=== PATIENT | female | born 1950 | race Caucasian/White ===

== ENCOUNTER → 2023-07-16 09:45 | Outpatient (REF) | payer MEDICARE, OTHER, SELFPAY | LOC: PAVMRI 09:45 | PROVIDERS: ATTENDING PHYSICIAN Specialist; FAMILY PHYSICIAN Family Medicine | DX: R26.89 Other abnormalities of gait and mobility (principal) | CPT/HCPCS: 70553; A9575 ==

== ENCOUNTER → 2023-09-16 15:21 | Outpatient (REF) | payer MEDICARE, OTHER, SELFPAY ==
[2023-09-16 17:03] LABS: % Basophils 0.5 % (0-2); % Eosinophils 1.4 % (0-6); % Immature Granulocytes 0.2 % (0-0.5); % Lymphocytes 40.9 % (20.5-51.1); % Monocytes 10.8 % (1.7-9.3); % Neutrophils 46.2 % (42.2-75.2); Absolute Eosinophils 0.1 10^3/uL (0-0.7); Absolute Lymphocytes 1.7 10^3/uL (1.2-3.4); Absolute Monocytes 0.5 10^3/uL (0.1-0.6); Hematocrit 41.2 % (37.0-47.0); Hemoglobin 13.6 g/dL (12.0-16.0); Mean Corpuscular Volume 90.7 fL (81.0-99.0); Mean Platelet Volume 10.2 fL (7.4-10.4); Nucleated Red Blood Cells % 0 %; Platelet Count 205 10^3/uL (130-400); Red Blood Cell Count 4.54 10^6/uL (4.20-5.40); Red Cell Dist. Width 14.3 % (11.5-14.5); White Blood Cell Count 4.3 10^3/uL (4.8-10.8)
== END ==
LOC: REG 15:21
PROVIDERS: ATTENDING PHYSICIAN Family Medicine
DX: D84.9 Immunodeficiency, unspecified (principal)
CPT/HCPCS: 36415; 85025

== ENCOUNTER → 2023-09-29 08:54 | Outpatient (REF) | payer MEDICARE, OTHER, SELFPAY | LOC: HWWDC 08:54 | PROVIDERS: ATTENDING PHYSICIAN Obstetrics & Gynecology; FAMILY PHYSICIAN Family Medicine | DX: Z12.31 Encounter for screening mammogram for malignant neoplasm of breast (principal) | CPT/HCPCS: 77063; 77067 ==

== ENCOUNTER 2024-08-30 06:22 | Day surgery (SDC) | payer MEDICARE, OTHER, SELFPAY | END 2024-08-30 12:40 | disposition home or self-care (01) | LOC: GI 06:22 | PROVIDERS: ATTENDING PHYSICIAN Internal Medicine | DX: R05.3 Chronic cough (principal); K29.70 Gastritis, unspecified, without bleeding; K31.7 Polyp of stomach and duodenum; K63.9 Disease of intestine, unspecified | CPT/HCPCS: 43239; 88305; 88342 ==

== ENCOUNTER → 2024-10-27 10:30 | Outpatient (REF) | payer MEDICARE, OTHER, SELFPAY ==
[2024-10-27 10:56] LABS: % Basophils 0.9 % (0-2); % Eosinophils 0.6 % (0-6); % Lymphocytes 41.1 % (20.5-51.1); % Monocytes 9.1 % (1.7-9.3); % Neutrophils 48.3 % (42.2-75.2); Absolute Lymphocytes 1.3 10^3/uL (1.2-3.4); Absolute Monocytes 0.3 10^3/uL (0.1-0.6); Absolute Neutrophils 1.5 10^3/uL (1.4-6.5); Hematocrit 41.9 % (37.0-47.0); Hemoglobin 13.8 g/dL (12.0-16.0); Mean Corp Hgb Conc. 32.9 g/dL (33.0-37.0); Mean Corpuscular Hgb 30.1 pg (27.0-31.0); Mean Corpuscular Volume 91.5 fL (81.0-99.0); Mean Platelet Volume 10.3 fL (7.4-10.4); Nucleated Red Blood Cells % 0 %; Platelet Count 184 10^3/uL (130-400); Red Blood Cell Count 4.58 10^6/uL (4.20-5.40); White Blood Cell Count 3.2 10^3/uL (4.8-10.8)
[2024-10-27 11:37] LABS: HDL Cholesterol 105 mg/dl; LDL Cholesterol, Calculated 91 mg/dl; Total Cholesterol 207 mg/dl (50-199); Triglyceride 56 mg/dl (10-149); Very Low Density Lipoprotein 11 mg/dl (0-30)
== END ==
LOC: REG 10:30
PROVIDERS: ATTENDING PHYSICIAN Family Medicine
DX: E78.2 Mixed hyperlipidemia (principal); Z01.84 Encounter for antibody response examination
CPT/HCPCS: 36415; 80061; 85025; 86765

== ENCOUNTER → 2024-11-17 13:56 | Outpatient (REF) | payer MEDICARE, OTHER, SELFPAY | LOC: HWWDC 13:56 | PROVIDERS: ATTENDING PHYSICIAN Obstetrics & Gynecology; FAMILY PHYSICIAN Family Medicine | DX: M85.80 Other specified disorders of bone density and structure, unspecified site (principal); M81.0 Age-related osteoporosis without current pathological fracture; Z12.31 Encounter for screening mammogram for malignant neoplasm of breast | CPT/HCPCS: 77063; 77067; 77080 ==

== ENCOUNTER → 2025-05-16 10:34 | Outpatient (REF) | payer MEDICARE, OTHER, SELFPAY | LOC: HWRAD 10:34 | PROVIDERS: ATTENDING PHYSICIAN Family Medicine | DX: R10.22 Pelvic and perineal pain left side (principal) | CPT/HCPCS: 74176 ==

== ENCOUNTER 2025-05-24 11:18 | Emergency (ER) | payer MEDICARE, OTHER, SELFPAY ==
[2025-05-24 11:48] VITALS: BP 138/81
--- NOTE | 2025-05-24 14:36 | ED.GENMED ---
History of Present Illness
General
Chief Complaint: Fall
Source: patient
Exam Limitations: none
Time Seen by Provider: 05/24/25 14:11
History of Present Illness
History of Present Illness:
Patient fell down 2 stairs this morning. Hitting the left side of her head and her nose. No LOC. No syncope. Complaining of mild left-sided headache. Also mild left shoulder pain. No dizziness no neck pain no nausea or vomiting. No other
major injury does complaining of mild left shoulder pain
Past History
Past History
ED Past Medical History: None
ED Past Surgical History: Appendectomy and Tonsilectomy
Social History
Tobacco: Non-smoker
Alcohol: None
Drug: None
Personal:
Living: with family
Review of Systems
Review of Systems
All Other Systems: Not applicable
Respiratory: Reports no symptoms
Cardiac: Reports no symptoms
Phy Exam
Physical Exam
Physical Exam:
TRAUMA EXAM:
VITAL SIGNS: Vital signs reviewed, cooperative
DISTRESS: No active disease
EYES: Pupils reactive, no orbital trauma
NOSE: Mild abrasion to the nasal bridge. No deformity
FACE AND SCALP: Mild left scalp tenderness. No hematoma no swelling.
NECK: Supple nontender
BACK: Back nontender, pelvis stable to compression
RESPIRATORY: No distress, breath sounds normal, no tender chest wall
CARDIAC: No murmur, pulses equal and strong
ABDOMEN: Soft nontender bowel sounds normal
SKIN: Skin intact no bleeding, color normal
EXTREMITIES: Very minimal tenderness over the left lateral shoulder. Able to abduct flex extend and abduct without issues. Motor or sensory neurovascular intact. No bony tenderness.
NEUROLOGICAL: Alert, oriented, no motor deficits
PSYCH: Mood affect normal
Course
Orders/Labs/Results
Orders:
Orders
05/24/25 11:52
CT Head W/o Iv Contrast Urgent
Comment:
Reason For Exam: fall
Vital Signs
Initial and Last Documented VS:
Initial Vital Signs
Temp Pulse Resp BP Pulse Ox
97.7 F 71 16 138/81 98
05/24/25 11:48 05/24/25 11:48 05/24/25 11:48 05/24/25 11:48 05/24/25 11:48
Last Documented Vital Signs
Temp Pulse Resp BP Pulse Ox
97.7 F 71 16 138/81 98
05/24/25 11:48 05/24/25 11:48 05/24/25 11:48 05/24/25 11:48 05/24/25 14:36
MDM/Problems Addressed
Differential Diagnosis Includes:
Clinically stable. No cervical spine issues. No thinners. Neurologically intact. Head CT negative. Shoulder without significant bony tenderness. No indication for radiologic testing. Symptomatic treatment and follow-up
*Radiology
Radiology exam reviewed: radiology read reviewed (Negative)
*Pulse Oximetry
SaO2: 98
Oxygen Mode of Delivery: Room air
Patient hypoxic: no
*Critical Care Note
Total Time (30-74mins, 75-104mins- exclusive of procedures): Not Applicable
ED Attending Note
-
Portions of this chart may have been created with voice recognition software.� Occasional wrong word or��sound alike� substitutions may have occurred due to the inherent limitations of voice recognition software.
Discharge Plan
Departure
Patient Disposition: Home (Routine Discharge)
Date of Disposition: 05/24/25
Time of Disposition: 14:37
Patient with high blood pressure during this ER visit?: Yes
Discharge Problem:
Closed head injury, Nasal/shoulder contusion
Instructions: Head Injury in Adults (DC), Contusion (DC), BLOOD PRESSURE
Prescriptions:
No Action
cephalexin 500 MG capsule
500 mg PO QID Qty: 39 0RF
sulfamethoxazole-trimethoprim 1 TABLET tablet
1 tab PO BID
multivitamin [Daily Multiple] 1 EACH tablet
1 ea PO DAILY
zolpidem 5 MG tablet
5 mg PO HS
fish,bora,flax oils-om3,6,9no1 [Butler 3-6-9 Complex] 1 EACH capsule
1 ea PO DAILY
hydrocodone-ibuprofen 200 MG/7.5 MG tablet
1 tab PO Q6HPRN PRN (Reason: pain) Qty: 20 0RF
doxycycline hyclate 100 MG capsule
100 mg PO Q12 Qty: 42 0RF
Referrals:
Rizwan Preciado DO [Family Provider, Family Practice] - Follow up in 2-3 days
Interventions
Interventions:
*General Assessment Last Done: 05/24/25 11:48
*Neglect/Abuse Screening Last Done: 05/24/25 11:48
*ED COVID-19 Vaccine History Last Done: 05/24/25 15:00
*ED Influenza Vaccine History Last Done: 05/24/25 15:00
[facility] Fall Risk Assessment Tool Last Done: 05/24/25 15:00
*Risk Screen - Suicide (C-SSRS) Last Done: 05/24/25 11:48
*Nursing Disposition Last Done: 05/24/25 15:00
ED-Musculoskeletal Assessment Last Done: 05/24/25 15:00
ED- Neurological Assessment Last Done: 05/24/25 15:00
ED-Skin Assessment Last Done: 05/24/25 15:00
Discharge Date and Time
Discharge Date/Time: 05/24/25 15:00
Print Language: FRENCH
== END 2025-05-24 15:00 | disposition home or self-care (01) ==
LOC: EMR 11:18
PROVIDERS: EMERGENCY PHYSICIAN Emergency Medicine; FAMILY PHYSICIAN Family Medicine
DX: S09.90XA Unspecified injury of head, initial encounter (principal); S00.33XA Contusion of nose, initial encounter; S40.012A Contusion of left shoulder, initial encounter; R51.9 Headache, unspecified; W10.9XXA Fall (on) (from) unspecified stairs and steps, initial encounter
CPT/HCPCS: 99284; 70450